=== PATIENT | female | born 1970 | race Caucasian/White ===

== ENCOUNTER 2017-07-08 12:37 | Emergency (ER) | payer BC ==
[~2017-07-08] VITALS: Ht 154.9 cm; Wt 68.0 kg
--- NOTE | 2017-07-08 13:12 | [facility]gent Treatment Center Report ---
History of Present Issue Date/Time Seen by Provider 07/08/17 1307 Visit Reason Pt arrived:Walked Presenting Problem:PT C/O BODY ACHES, SORE THROAT, HEAD AND CHEST CONGESTION X 3 DAYS Location if Accident: Onset of symptoms date/time:/ or onset unknown for:MEDICAL HX UNKNOWN Have you (or family members/close friends) recently traveled outside the [place]? N If Yes, where/when: Have you had exposure to infectious disease within the past month? TB? Other? Specify: Paitent state that she has not been feeling well for several days State that she is having sorethroat, cough, head and chest congestion State that she noticed that she has thick yellowish drainage from nose. State that she has felt feverish so she came in to get checked ALLERGIES Coded Allergies: iodine (Mild, 07/08/17) pseudoephedrine (Mild, 07/08/17) Uncoded Allergies: CLASS: 12:12 - Sympathomimetic Agents (08/01/02) History Medical History General CAD? No Angina: No NC: No Hypertension? No Hyperlipidemia? No CHF? No DVT? No PE? No COPD? No Asthma? No Anemia? No GERD? No Gastric ulcers? No GI Bleed? No Hernia? No Thyroid Problems? No Hypothyroidism? No CVA? No Seizures? No Diabetes? No Renal Insuffiency? No UTI? Yes Stones? Yes GB Disease: No Nephritic Syndrome? No Asplenia? No Hepatitis? No Sickle Cell Disease? No Migraines? No Cataracts? No Glaucoma? No MRSA? No HIV? No TB? No Depression? No Cancer? No Site: N Immunization HX DT/Tetanus 1-4 YRS Surgical Hx Previous Surgery?Y LITHOTRIPSY APPY Tubal Ligation BREAST REDUCTION Family History Family HX Diabetes No CAD No Hypertension No Hyperlipidemia No Cancer No TB No Social History Smoking Hx Smoker: Never Smoker Tobacco: No Alcohol Alcohol: Yes Review of Systems All Other Systems Reviewed and Negative Constitutional chills, fever ENT ear pain, nose congestion, throat pain. Respiratory cough, denies shortness of breath, denies wheezing Physical Exam Vital Signs Vital Signs Date Time Temp Pulse Resp B/P Pulse O2 O2 Flow FiO2 Ox Delivery Rate 07/08 1314 99.1 105 16 131/91 98 07/08 1254 99.1 105 16 131/91 98 General Appearance normal appearance, WD/WN Ear, Nose, Throat sinus pain/drainage, nasal congestion, tonsillar swelling, THroat red, irritated drainage noted, reports yellowish green drainage from nose and tenderness noted frontal sinsues Respiratory Status Yes: trachea midline, chest symmetrical, non tender chest. No: respiratory distress. Lung Sounds bilateral: normal breath sounds, lungs clear. Cardiovascular normal exam, regular rate/rhythm, no peripheral edema Neurologic alert, normal exam, oriented x 3 Medical Decision Making LABS/Meds/Orders Pt receiving controlled substance in ED? No Departure Departure Time of Disposition 1308 Disposition DC Home or Self Care(routine) Clinical Impression Primary Impression: Upper respiratory infection Qualifiers: URI type: unspecified URI Qualified Code: J06.9 - Acute upper respiratory infection, unspecified Condition STABLE Patient Instructions DI for Cough -- Adult, Sinusitis, Sore Throat Additional Instructions * Monitor Temp. Tylenol and/or Ibuprofen as needed. ER if fever is no less than 101 despite alternating Tylenol and Ibuprofen * Encourage fluids, water, Gatorade, powerade, pedialyte if infant/toddler/or child * Warm salt water gargles for throat irritation *Warm fluids *Sore throat lozenges *Sleep elevated *humidifier or vaporizer Follow up IMMEDIATELY for new or worsening of symptoms OR no noticeable improvement over the next 48-72 hours. 911 immediately for any life threatening symptoms such as chest pain or difficulty breathing Discharge Counseling Counseled pt/family regarding diagnosis, medications/RX, home care, follow up needs Prescriptions Current Visit Scripts Azithromycin (Zithromycin (Z-KOSTA) 250MG Tab) 250 MG PO DAILY #6 TAB TAKE TWO (2) TABLETS ON DAY 1, THEN ONE (1) TABLET DAY #2 THRU #5 Methylprednisolone (Medrol Dose Kosta) 4 MG PO UD #1 KOSTA TAKE DIRECTED ON PACKAGING at 1851
[2017-07-08 13:14] VITALS: BP 131/91
--- OUTSIDE RECORDS SUMMARY | 2017-07-18 03:08 | External Medical Summary Rpt | CCD ---
Author Author [employer] Organization [employer] Address Unknown Phone Unavailable Purpose Continuity of Care Document - through 2016
--- OUTSIDE RECORDS SUMMARY | 2017-07-18 03:08 | External Medical Summary Rpt | CCD ---
Demographics Preferred Language Armenian Marital Status Unknown Worship Affiliation Unknown Race Unknown Ethnic Group Unknown Author Author , JAIR ADAM Address Unknown Phone Immunization Unable to retrieve immunization data due to connection failure with Immunization Registry. Please try again later.
--- OUTSIDE RECORDS SUMMARY | 2017-07-18 03:08 | External Medical Summary Rpt | CCD ---
Demographics Preferred Language Omani Marital Status Unknown Gnosticism Affiliation Unknown Race Unknown Ethnic Group Unknown Author Author , JAIR ADAM Address Unknown Phone Immunization Unable to retrieve immunization data due to connection failure with Immunization Registry. Please try again later.
--- OUTSIDE RECORDS SUMMARY | 2017-07-18 03:08 | External Medical Summary Rpt | CCD ---
Author Author JAIR Address Unknown Phone [email or web address] Purpose Continuity of Care Document - through 2016
--- OUTSIDE RECORDS SUMMARY | 2017-07-18 03:08 | External Medical Summary Rpt | CCD ---
Author Author JAIR Address Unknown Phone Purpose Continuity of Care Document - through 2016
== END 2017-07-08 13:14 | disposition home or self-care (01) ==
LOC: UTC 12:37
DX: J06.9 Acute upper respiratory infection, unspecified (principal)